=== PATIENT | male | born 1960 | race Caucasian/White ===

== ENCOUNTER 2018-03-29 17:51 | Emergency (ER) | payer BC ==
[~2018-03-29] VITALS: Ht 175.3 cm; Wt 79.4 kg
[2018-03-29] MEDS ORDERED: NAPROSYN500 MG PO (19:13)
[2018-03-29] MEDS ORDERED: ROBAXIN 750 MG750 M1 PO (19:13)
[2018-03-29] MEDS ORDERED: HYDROCODONE-AP1 EAC6 PO (19:13)
[2018-03-29 19:27] VITALS: BP 135/78
== END 2018-03-29 19:33 | disposition home or self-care (01) ==
LOC: M.ERS 17:51
DX: M54.2 Cervicalgia (principal); M54.5 Low back pain; M54.6 Pain in thoracic spine